=== PATIENT | male | born 1985 | race Caucasian/White ===

== ENCOUNTER 2022-11-14 11:20 | Emergency (ER) | payer BC ==
[2022-11-14] MEDS ORDERED: Diphtheria,Pertussis(Acell),Tetanus Vaccine 0.5 ML Syringe IM ONE (11:57)
[2022-11-14] MEDS ORDERED: Bacitracin Oint 1 GM U/D Packet TOP ONE (11:57)
[2022-11-14] MEDS ORDERED: Lidocaine 1% with EPINEPHrine 1:100,000 50 ML MDV INFILT ONE (12:26)
== END 2022-11-14 13:15 | disposition home or self-care (01) ==
LOC: JP.ED 11:20
DX: S91.311A Laceration without foreign body, right foot, initial encounter (principal); Z23 Encounter for immunization; W22.8XXA Striking against or struck by other objects, initial encounter
CPT/HCPCS: 12001; 90471; 90715; 99282-25